=== PATIENT | female | born 1995 | race Caucasian/White ===

== ENCOUNTER 2017-10-19 00:26 | Emergency (ER) | payer SELFPAY ==
[~2017-10-19] VITALS: Ht 172.7 cm; Wt 71.0 kg
[~2017-10-19 00:26] MED LIST: CLIN-79 PO; HYDR-569 PO; NO HOME MEDS; PREN1TAB75 PO
[2017-10-19 00:47] VITALS: BP 129/78
== END 2017-10-19 00:51 ==
LOC: ER 00:26
DX: Z02.89 Encounter for other administrative examinations (principal); O99.322 Drug use complicating pregnancy, second trimester; F11.20 Opioid dependence, uncomplicated; F12.10 Cannabis abuse, uncomplicated; F15.10 Other stimulant abuse, uncomplicated; Z59.0 Homelessness; Z90.49 Acquired absence of other specified parts of digestive tract; Z88.8 Allergy status to other drugs, medicaments and biological substances; Z79.899 Other long term (current) drug therapy; Z3A.20 20 weeks gestation of pregnancy
CPT/HCPCS: 99283

== ENCOUNTER 2018-01-21 09:37 | Emergency (ER) | payer OTHER ==
[~2018-01-21] VITALS: Ht 174 cm; Wt 79.5 kg
[2018-01-21 10:54] VITALS: BP 107/74
== END 2018-01-21 11:17 ==
LOC: ER 09:38
DX: O99.323 Drug use complicating pregnancy, third trimester (principal); F11.10 Opioid abuse, uncomplicated; F15.10 Other stimulant abuse, uncomplicated; Z59.0 Homelessness; Z79.899 Other long term (current) drug therapy; Z3A.39 39 weeks gestation of pregnancy
CPT/HCPCS: 99283

== ENCOUNTER 2018-06-30 03:07 | Emergency (ER) | payer OTHER ==
[~2018-06-30] VITALS: Ht 172.7 cm; Wt 58.0 kg
[~2018-06-30 03:07] MED LIST changes: -CLIN-79 PO; +CLIN150C8 PO
[2018-06-30] MEDS ORDERED: albuterol 2.5 MG/3 ML nebule NEB ONE (03:40)
[2018-06-30 04:14] VITALS: BP 115/60
[2018-06-30] MEDS ORDERED: ALBU8HFA PO (04:28)
[2018-06-30] MEDS ORDERED: AZIT-63 PO (04:28)
== END 2018-06-30 04:35 | disposition home or self-care (01) ==
LOC: ER 03:07
DX: J20.9 Acute bronchitis, unspecified (principal); F12.90 Cannabis use, unspecified, uncomplicated; F15.90 Other stimulant use, unspecified, uncomplicated; F11.90 Opioid use, unspecified, uncomplicated; Z88.8 Allergy status to other drugs, medicaments and biological substances; Z79.2 Long term (current) use of antibiotics; Z79.899 Other long term (current) drug therapy; Z90.49 Acquired absence of other specified parts of digestive tract; Z59.0 Homelessness
CPT/HCPCS: 71045; 94640; 94760; 99283

== ENCOUNTER 2018-08-02 01:44 | Emergency (ER) | payer MEDICAID, OTHER ==
[~2018-08-02] VITALS: Ht 172.7 cm; Wt 58.3 kg
[~2018-08-02 01:44] MED LIST changes: +HYDR-4383 PO; -HYDR-569 PO
[2018-08-02] MEDS ORDERED: iohexol 300mg/ml 100ml inj. ONE (03:39)
[2018-08-02 03:44] LABS: URINE HCG NEGATIVE (NEG)
[2018-08-02 04:27] LABS: BASOPHILS % (AUTO) 0.6 % (0-1); EOSINOPHILS # (AUTO) 0.1 X10'3 (0-0.9); EOSINOPHILS % (AUTO) 2.2 % (0-6); HEMATOCRIT 38.1 % (35.0-45.0); HEMOGLOBIN 12.4 g/dl (12.0-16.0); LYMPHOCYTES # (AUTO) 2.4 X10'3 (1.1-4.8); LYMPHOCYTES % (AUTO) 36.2 % (21-51); MEAN CORPUSCULAR HEMOGLOBIN 24.8 PG (27.0-31.0); MEAN CORPUSCULAR HGB CONC 32.4 % (33.0-36.5); MEAN CORPUSCULAR VOLUME 76.5 FL (78-98); MEAN PLATELET VOLUME 8.1 FL (7.4-10.4); MONOCYTES # (AUTO) 0.6 X10'3 (0-0.9); MONOCYTES % (AUTO) 8.3 % (2-12); NEUTROPHILS # (AUTO) 3.5 X10'3 (1.8-7.7); NEUTROPHILS % (AUTO) 52.7 % (42-75); PLATELET COUNT 191 X10'3 (140-440); RED BLOOD COUNT 4.98 X10'6 (4.20-5.60); WHITE BLOOD COUNT 6.7 X10'3 (4.5-11.0)
[2018-08-02 04:35] LABS: ALANINE AMINOTRANSFERASE 109 U/L (12-78); ALBUMIN 3.2 G/DL (3.4-5.0); ALBUMIN/GLOBULIN RATIO 0.7 (1.1-1.5); ALKALINE PHOSPHATASE 85 IU/L (20-180); ANION GAP 8 (8-16); ASPARTATE AMINO TRANSFERASE 46 U/L (10-37); BILIRUBIN,TOTAL 0.4 MG/DL (0.1-1.0); BLOOD UREA NITROGEN 9 MG/DL (7-18); BUN/CREATININE RATIO 13.6 (6.6-38.0); CALCIUM 9.2 MG/DL (8.5-10.1); CHLORIDE 101 MMOL/L (99-107); CREATININE 0.66 MG/DL (0.40-0.90); GLUCOSE 87 MG/DL (70-104); POTASSIUM 3.5 MMOL/L (3.5-5.1); SODIUM 139 MMOL/L (135-145); TOTAL CARBON DIOXIDE 29.9 MMOL/L (24-32); TOTAL PROTEIN 7.5 G/DL (6.4-8.2); eGFR > 90 ML/MIN
[2018-08-02] MEDS ORDERED: CLIN300C54 PO (05:45)
[2018-08-02] MEDS ORDERED: IBUP-1985 PO (05:45)
[2018-08-02] MEDS ORDERED: clindamycin-Cleocin 900mg/D5W 50 ML IV ONE (05:45)
[2018-08-02 06:35] VITALS: BP 110/56
== END 2018-08-02 06:36 | disposition home or self-care (01) ==
LOC: ER 01:45
DX: L02.11 Cutaneous abscess of neck (principal); L03.221 Cellulitis of neck; F12.90 Cannabis use, unspecified, uncomplicated; F15.90 Other stimulant use, unspecified, uncomplicated; F11.90 Opioid use, unspecified, uncomplicated; Z88.8 Allergy status to other drugs, medicaments and biological substances; Z79.899 Other long term (current) drug therapy; Z90.49 Acquired absence of other specified parts of digestive tract; Z59.0 Homelessness
CPT/HCPCS: 36415; 70491; 80053; 81025; 85025; 96365; 99285; Q9967; J3490

== ENCOUNTER 2025-05-20 21:02 | Emergency (ER) | payer SELFPAY ==
[~2025-05-20] VITALS: Ht 170.2 cm; Wt 80.5 kg
[~2025-05-20 21:02] MED LIST changes: +CLIN-214 PO; -CLIN150C8 PO; +IBUP600T52 PO
[2025-05-20 21:25] VITALS: BP 137/102; PULSE 81; RESP 15; TEMP 96.3; O2SAT 96
[2025-05-21] MEDS ORDERED: CEPH-585 PO (06:27)
== END 2025-05-20 23:46 | disposition left against medical advice (07) ==
LOC: ER 21:03
DX: S90.821A Blister (nonthermal), right foot, initial encounter (principal); Z53.21 Procedure and treatment not carried out due to patient leaving prior to being seen by health care provider; Z88.8 Allergy status to other drugs, medicaments and biological substances; X58.XXXA Exposure to other specified factors, initial encounter; Y93.89 Activity, other specified; Y92.89 Other specified places as the place of occurrence of the external cause; Y99.8 Other external cause status

== ENCOUNTER 2025-05-21 05:26 | Emergency (ER) | payer SELFPAY ==
[~2025-05-21] VITALS: Ht 170.2 cm; Wt 80.5 kg
[2025-05-21 05:31] VITALS: BP 102/68; PULSE 81; TEMP 96.3; O2SAT 99
--- NOTE | 2025-05-21 06:19 | Physician Documentation ---
History of Present Illness General Chief Complaint: Wound Stated Complaint: BLISTERS ON FEET Time Seen by MD: 06:12 Primary Medical Doctor: Pardeep rod History of Present Illness Initial Comments Patient is a 29-year-old female who states she has blisters over her feet she states she has been walking a lot of the [place], and she is concerned that they may have become infected. The patient states she has blisters to the toes on both feet x2 days. Patient denies any discharge she complains of some redness she denies any fevers chills. Patient's symptoms are moderate and persistent. Medication Reconciliation Allergies: Coded Allergies: lamotrigine (Verified Allergy, Unknown, 05/21/25) methylphenidate (Unverified Allergy, Unknown, 05/21/25) Scheduled Cephalexin*Monohydrate* (Keflex*), 2 CAP PO BID Clindamycin HCl (Clindamycin HCl CAPSULE), 3 CAP PO TID Pnv95/Ferrous Fumarate/FA ( Tablet), 1 TABLET PO DAILY Scheduled PRN Hydrocodone/Acetaminophen ([place] 5-325 Tablet), 1-2 TABLET PO Q4H PRN for pain Ibuprofen (Ibuprofen), 1 TAB PO Q6H PRN PRN for pain Miscellaneous Medications Home Med List (No Home Medications), (Reported) Past Medical History Past Medical History: *ENDOCRINE*, Extremity Fracture Past Surgical History: appendectomy Smoking: Non-Smoker Alcohol Use: Sober Drug Use: marijuana, methamphetamine, heroin Lives with: S/O Lives In: Homeless Occupation: student Review of Systems All Other Systems at this time: Reviewed and Negative Physical Exam Physical Exam Vital Signs: Temperature: 96.3, Source: Temporal, Heart Rate: 81, Respiratory Rate: 15, BP: 102/68, Pulse Oximetry: 99, Weight: 80.500 Physical Exam VITALS: Reviewed and as above. GENERAL: Alert, no apparent distress. HEENT: Normocephalic, atraumatic, PERRL, EOMI, dry mucosa, no erythema GI: Soft, non-tender, bowels sounds present, no rebound, guarding, or rigidity BACK: No CVA tenderness, or swelling MUSCULOSKELETAL: No deformities, no edema SKIN: Patient has several 1 cm blisters she has blisters to the intertriginous area of are big toe and her 2nd toe on both feet she also has a 1 cm blister on the lateral aspect of her 5th toe on the right foot this does have about 2-3 cm of surrounding erythema all the blisters has been popped there was no other significant erythema or swelling the patient has total of four visible 1 cm blisters. NEURO: Oriented x4, No motor or sensory deficit PSYCH: Normal mood and affect, no agitation Progress Results/Orders Results/Orders Vital Signs 05/21/25 05/21/25 05:31 06:39 Temp 96.3 Pulse 81 Resp 15 14 B/P (MAP) 102/68 Pulse Ox 99 Medical Decision Making Findings Patient with some blisters one area with some slight redness she will be treated with Keflex for possible cellulitis the patient will be discharged Departure Time of Disposition: 06:26 Disposition: 01 HOME / SELF CARE / HOMELESS Impression: Primary Impression: Wound cellulitis Additional Instructions: Use the Band-Aids as needed keep the wound clean use Keflex as prescribed. Follow up with your healthcare provider return for worsening of her symptoms Departure Forms: Excuse form Work or School Excused From: Work Excuse beginning now through the following date: May 21, 2025 May Return but still avoid physical Activity from now until: May 21, 2025 May Return to full physical activity as of: May 21, 2025 Additional Instructions: The patient was seen for blisters, one may be infected and antibiotics have been prescribed. The patient may return to work Referrals: NO PRIMARY CARE PROVIDER (PCP) Prescriptions Cephalexin*Monohydrate* (Keflex*) 500 Mg Capsule 2 CAP PO BID, #28 CAP Prov: GEENA MALIK MD 05/21/25 Signature Scribe Signature: No scribe Attestation: The note accurately reflects work and decisions made by me.Geena Malik MD 05/21/25 17:09 GEENA MALIK MD May 21, 2025 06:19
[2025-05-21] MEDS ORDERED: CEPH-585 PO (06:27)
[2025-05-21 06:39] VITALS: RESP 14
== END 2025-05-21 07:20 | disposition home or self-care (01) ==
LOC: ER 05:27
DX: S90.821A Blister (nonthermal), right foot, initial encounter (principal); L03.031 Cellulitis of right toe; F12.90 Cannabis use, unspecified, uncomplicated; F15.90 Other stimulant use, unspecified, uncomplicated; F11.90 Opioid use, unspecified, uncomplicated; Z90.49 Acquired absence of other specified parts of digestive tract; X58.XXXA Exposure to other specified factors, initial encounter; Y93.89 Activity, other specified; Y92.89 Other specified places as the place of occurrence of the external cause; Y99.8 Other external cause status
CPT/HCPCS: 99283; J7040